=== PATIENT | male | born 1945 | race American Indian/Alaskan Native ===

== ENCOUNTER 2016-11-27 08:52 | Inpatient (IN) | payer MEDICARE, MEDICAID ==
[2016-11-27 09:05] VITALS: BMI 18.3
[2016-11-27] MEDS ORDERED: Sodium Chloride 0.9% 500 ML IV STA ×2 (10:12→11:43)
[2016-11-27 10:38] LABS: BASO # 0.02 K/mm3 (0.0-2.0); BASO % 0.7 % (0.0-3.0); EOS # 0.2 (0.0-0.7); EOS % 7.3 % (1.5-5.0); GRAN # 1.85 (1.4-6.5); GRAN % 64.2 % (50.0-68.0); HEMATOCRIT 40.6 % (42.0-52.0); LYMPH # 0.3 (1.2-3.4); LYMPH % 10.8 % (22.0-35.0); MEAN CELL VOLUME 82.4 fL (80.0-105.0); MEAN CORPUSCULAR HEMOGLOBIN 28.2 pg (25.0-35.0); MEAN CORPUSCULAR HGB CONC 34.2 g/dl (31.0-37.0); MEAN PLATELET VOLUME 9.9 fl (7.0-11.0); MONO # 0.5 (0.1-0.6); PLATELET COUNT 158 10^3/uL (120.0-450.0); RED CELL DISTRIBUTION WIDTH 14.8 % (11.5-14.5)
[2016-11-27 10:40] LABS: URINE BILIRUBIN NEGATIVE (NEGATIVE); URINE BLOOD MODERATE (NEGATIVE); URINE GLUCOSE (UA) NEGATIVE (NEGATIVE); URINE KETONE NEGATIVE (NEGATIVE); URINE LEUKOCYTE ESTERASE MODERATE Leu/uL (NEGATIVE); URINE PROTEIN 100 mg/dL (<30 mg/dL); URINE UROBILINOGEN 0.2 E.U./dL (<1 E.U./dL)
[2016-11-27 10:41] LABS: URINE APPEARANCE TURBID (CLEAR); URINE COLOR YELLOW (YELLOW)
[2016-11-27 10:44] LABS: WHITE BLOOD COUNT 2.9 10^3/ul (4.5-11.0)
[2016-11-27 10:47] LABS: URINE RBC 25 - 30 /hpf (0-2); URINE WBC TNTC /hpf (0-6)
[2016-11-27 10:48] LABS: ALB/GLOB RATIO 1.1 (1.1-1.8); ALKALINE PHOSPHATASE 112 U/L (38-133); ALT/SGPT 26 U/L (7-56); AST/SGOT 35 U/L (15-59); BILIRUBIN,TOTAL 0.8 mg/dL (0.2-1.3); BLOOD UREA NITROGEN 19 mg/dL (7-21); CALCIUM 10.1 mg/dL (8.4-10.5); CARBON DIOXIDE 27 mmol/L (21-33); CHLORIDE 98 mmol/L (98-107); GFR AFRICAN-AMERICAN > 60; GLUCOSE,RANDOM 89 mg/dL (70-110); INR 1.12 (0.93-1.08); LIPASE 99 U/L (23-300); PARTIAL THROMBOPLASTIN TIME 26.5 Seconds (23.7-30.8); SODIUM 139 mmol/L (132-148); TOTAL PROTEIN 8.7 g/dL (5.8-8.3); URINE BACTERIA MANY (NEG)
--- NOTE | 2016-11-27 10:50 | RAD ---
HISTORY: weakness COMPARISON: No prior. FINDINGS: LUNGS: No active pulmonary disease. PLEURA: No significant pleural effusion identified, no pneumothorax apparent. CARDIOVASCULAR: Normal. OSSEOUS STRUCTURES: No significant abnormalities. VISUALIZED UPPER ABDOMEN: Normal. OTHER FINDINGS: None. IMPRESSION: No active disease.
[2016-11-27 10:59] LABS: TROPONIN I 0.01 ng/mL
[2016-11-27 11:21] LABS: ADD MANUAL DIFF? NO
[2016-11-27] MEDS ORDERED: Piperacillin/Tazobact 3.375 gm 100 ML IVPB STA (11:48)
--- NOTE | 2016-11-27 11:49 | ED PDOC ---
Arrival/HPI - General Chief Complaint: Weakness/Neurological Deficit Time Seen by Provider: 11/27/16 09:46 Historian: Patient - History of Present Illness Narrative History of Present Illness (Text): 11/27/16 16:17 71-year-old male presents today sent down by his oncologist for possible dehydration and weakness. Patient states he's been feeling weak hasn't been eating for the past month or so. Patient states it has been since he has started the cancer treatment. Patient denies fevers or chills. No abdominal pain. No chest pain or shortness of breath. Patient states he hasn't had an appetite and hasn't been drinking a lot. Patient denies urinary symptoms. No back pain. No other complaints Past Medical History - Provider Review Nursing Documentation Reviewed: Yes - Travel History Have you recently traveled outside [place] w/in the past 3 mons?: No - Tetanus Immunization Tetanus Immunization: Unknown - Cardiac Hx Cardiac Disorders: Yes Hx Hypertension: Yes - Pulmonary Hx Respiratory Disorders: No - Neurological Hx Neurological Disorder: Yes HX Cerebrovascular Accident: Yes (LEFT SIDED WEAKNESS) Hx Seizures: Yes Other/Comment: "MEMORY DEFICIT". "PARTIALLY CONFUSED" - HEENT Hx HEENT Disorder: Yes Other/Comment: HX: CHRONIC TONSILLITIS - Endocrine/Metabolic Hx Endocrine Disorders: No - Hematological/Oncological Hx Cancer: Yes (testicular c/ radiation) - Musculoskeletal/Rheumatological Hx Musculoskeletal Disorders: Yes Hx Unsteady Gait: Yes ("ABNORMALITY OF GAIT") - Genitourinary/Gynecological Hx Genitourinary Disorders: Yes Hx Incontinence: Yes - Psychiatric Hx Psychophysiologic Disorder: Yes ("PARTIALLY CONFUSED") Hx Substance Use: No - Anesthesia Hx Anesthesia: Yes Hx Anesthesia Reactions: No Family/Social History - Physician Review Nursing Documentation Reviewed: Yes Family/Social History: Unknown Family HX Smoking Status: Unknown If Ever Smoked Hx Alcohol Use: No Hx Substance Use: No Allergies/Home Meds Allergies/Adverse Reactions: Allergies No Known Allergies Allergy (Verified 11/27/16 09:05) Home Medications: Home Meds Medication Instructions Recorded Confirmed Enalapril Maleate [Vasotec] 20 mg PO BID 05/21/16 11/27/16 Phenytoin Sodium Extended 100 mg PO TID 05/21/16 11/27/16 [Phenytoin Sodium Extended] Simvastatin 40 mg PO DAILY 05/21/16 11/27/16 Tamsulosin [Flomax] 0.4 mg PO DAILY 05/21/16 11/27/16 Review of Systems - Review of Systems Constitutional: absent: Fatigue, Fevers Respiratory: absent: SOB, Cough Cardiovascular: absent: Chest Pain, Palpitations Gastrointestinal: Appetite Changes. absent: Abdominal Pain, Diarrhea, Nausea, Vomiting Genitourinary Male: absent: Dysuria, Frequency Musculoskeletal: absent: Arthralgias, Back Pain, Neck Pain Skin: absent: Rash, Pruritis Neurological: Other (generalized weakness. ) Physical Exam Vital Signs Reviewed: Yes Vital Signs Temp Pulse Pulse Resp BP Pulse Ox 11/27/16 16:16 79 16 117/72 100 11/27/16 15:43 97.7 F 90 90 16 124/75 11/27/16 13:45 90 16 124/75 100 11/27/16 12:23 77 16 113/73 100 11/27/16 09:16 97.7 F 99 H 18 111/74 99 Temperature: Afebrile Blood Pressure: Normal Pulse: Tachycardic Respiratory Rate: Normal Appearance: Positive for: Well-Appearing, Non-Toxic, Ill-Appearing, Cachectic Pain Distress: None Mental Status: Positive for: Alert and Oriented X 3 - Systems Exam Head: Present: Atraumatic Mouth: Present: Dry Neck: Present: Normal Range of Motion Respiratory/Chest: Present: Clear to Auscultation Cardiovascular: Present: Regular Rate and Rhythm Abdomen: No: Tenderness, Distention, Rebound, Guarding Back: Present: Normal Inspection. No: CVA Tenderness Neurological: Present: GCS=15 Skin: Present: Warm, Dry, Normal Color. No: Rashes Psychiatric: Present: Alert, Oriented x 3 Medical Decision Making ED Course and Treatment: 71yr old male with generalized weakness and decreased appetite. will check labs/ekg/cxr; will hydrate patient. 11/27/16 11:[address] Mooney; accepts admission. NS 500cc iv bolus 11/27/16 12:16 cbc; wbc; 2.9 cmp: wnl UA: + blood, moderate leukocytes; + TNTC wbcs. + bacteria blood cultures:pending Urine culture pending cxr; wnl ekg; NSR at 73b/m no st elevations. lactate; 2.1 pt with UTI, with leukopenia white blood cell count 2.9, heart rate 99. code sepsis called. 30cc/kg NS iV given zosyn given IV. Pt reassessment; repeat vitals; stable; pt is afebrile, tachycardia resolved. i discussed all results in depth with patient; will admit to tele for urosepsis case discussed with dr. underwood. impression; urosepsis admit tele ; dr. mooney. 11/27/16 16:25 4hr lactate; improved; 1.2 - Lab Interpretations Lab Results: 11/27/16 10:00 11/27/16 10:00 Lab Results 11/27/16 12:20: Phosphorus 3.7, Magnesium 1.9 11/27/16 11:48: pO2 44, VBG pH 7.30 L, VBG pCO2 61.0 H, VBG HCO3 30.0 H, VBG Total CO2 31.9 H, VBG O2 Sat (Calc) 72.0 H, VBG Base Excess 2.0, VBG Potassium 5.5 H, Sodium 138.0, Chloride 102.0, Glucose 81, Lactate 2.1, FiO2 21.0, Venous Blood Potassium 5.5 H 11/27/16 10:00: WBC 2.9 L*, RBC 4.93, Hgb 13.9 L, Hct 40.6 L, MCV 82.4, MCH 28.2 , MCHC 34.2, RDW 14.8 H, Plt Count 158, MPV 9.9, Gran % 64.2, Lymph % (Auto) 10.8 L, [place] % (Auto) 17.0 H, Eos % (Auto) 7.3 H, Baso % (Auto) 0.7, Gran # 1.85 , Lymph # 0.3 L, [place] # 0.5, Eos # 0.2, Baso # 0.02, PT 12.1 H, INR 1.12 H, APTT 26.5, Sodium 139, Chloride 98, Potassium 4.0, Carbon Dioxide 27, Anion Gap 18, BUN 19, Creatinine 0.7, Est GFR ( Amer) > 60, Est GFR (Non-Af Amer) > 60, Random Glucose 89, Calcium 10.1, Total Bilirubin 0.8, AST 35, ALT 26, Alkaline Phosphatase 112, Lactate Dehydrogenase 462, Total Creatine Kinase 135, Troponin I 0.01, Total Protein 8.7 H, Albumin 4.6, Globulin 4.1, Albumin/ Globulin Ratio 1.1, Lipase 99, Urine Color Yellow, Urine Appearance Turbid, Urine pH 8.0, Ur Specific [place] 1.020, Urine Protein 100 H, Urine Glucose (UA ) Negative, Urine Ketones Negative, Urine Blood Moderate H, Urine Nitrate Negative, Urine Bilirubin Negative, Urine Urobilinogen 0.2, Ur Leukocyte Esterase Moderate H, Urine RBC 25 - 30, Urine WBC Tntc, Urine Bacteria Many - RAD Interpretation Radiology Orders: 11/27/16 10:11 CHEST PORTABLE [RAD] Stat - Medication Orders Current Medication Orders: Discontinued Medications Sodium Chloride (Sodium Chloride 0.9%) 500 mls @ 999 mls/hr IV .Q31M STA Stop: 11/27/16 10:42 Last Admin: 11/27/16 10:16 Dose: 999 MLS/HR eMAR Start Stop Document 11/27/16 10:16 GARRY (Rec: 11/27/16 10:17 [id number]) Intravenous Solution Start Date 11/27/16 Start Time 10:16 End Date 11/27/16 End time 10:46 Total Infusion Time 30 Sodium Chloride (Sodium Chloride 0.9%) 500 mls @ 999 mls/hr IV .Q31M STA Stop: 11/27/16 12:13 Last Admin: 11/27/16 12:00 Dose: 999 MLS/HR eMAR Start Stop Document 11/27/16 12:00 GARRY (Rec: 11/27/16 [id number] Intravenous Solution Start Date 11/27/16 Start Time 12:00 End Date 11/27/16 End time 12:30 Total Infusion Time 30 Piperacillin Sod/Tazobactam Sod (Zosyn 3.375 In Ns 100ml) 100 mls @ 200 mls/hr IVPB STAT STA PRN Reason: Protocol Stop: 11/27/16 12:17 Last Admin: 11/27/16 12:26 Dose: 200 MLS/HR eMAR Start Stop Document 11/27/16 12:26 GARRY (Rec: 11/27/16 12:27 [id number] Intravenous Solution Start Date 11/27/16 Start Time 12:26 End Date 11/27/16 End time 12:56 Total Infusion Time 30 Sodium Chloride (Sodium Chloride 0.9%) 590 mls @ 999 mls/hr IV .Q36M STA Stop: 11/27/16 13:04 Last Admin: 11/27/16 12:30 Dose: 999 MLS/HR eMAR Start Stop Document 11/27/16 12:30 GARRY (Rec: 11/27/16 12:34 GARRY [id number]) Intravenous Solution Start Date 11/27/16 Start Time 12:30 End Date 11/27/16 End time 13:05 Total Infusion Time 35 Disposition/Present on Arrival - Present on Arrival Any Indicators Present on Arrival: No History of DVT/PE: No History of Uncontrolled Diabetes: No Urinary Catheter: No History of Decub. Ulcer: No History Surgical Site Infection Following: None - Disposition Have Diagnosis and Disposition been Completed?: Yes Diagnosis: Urinary tract infection Disposition: HOSPITALIZED Disposition Time: 11:49 Patient Plan: Admission, Telemetry Patient Problems: Current Active Problems Problem Status Diagnosed Urinary tract infection Acute Condition: FAIR
[2016-11-27 12:38] LABS: MAGNESIUM 1.9 mg/dL (1.7-2.2); PHOSPHOROUS 3.7 mg/dL (2.5-4.5)
[2016-11-27 16:22] LABS: VENOUS BLOOD GAS BASE EXCESS 0.3 mmol/L (0.0-2.0); VENOUS BLOOD PH 7.32 (7.32-7.43)
--- NOTE | 2016-11-27 18:26 | CARD ---
APPROVED REPORT EKG Measurement Heart [id number] <Conclusion> Poor data quality, interpretation may be adversely affected Normal sinus rhythm Normal ECG
[2016-11-27] MEDS: Sodium Chloride 0.45% 1,000 ML IV SCH (20:29)
[2016-11-27] MEDS: Meropenem 1 GM in Sodium Chloride 0.9% 100 ML IVPB SCH (20:31)
[2016-11-28] MEDS: Meropenem 1 GM in Sodium Chloride 0.9% 100 ML IVPB SCH ×3 (05:49→21:50)
[2016-11-28 07:12] LABS: HEMATOCRIT 33.9 % (42.0-52.0); MEAN CELL VOLUME 82.3 fL (80.0-105.0); MEAN CORPUSCULAR HEMOGLOBIN 27.4 pg (25.0-35.0); MEAN CORPUSCULAR HGB CONC 33.3 g/dl (31.0-37.0); MEAN PLATELET VOLUME 9.5 fl (7.0-11.0); RED CELL DISTRIBUTION WIDTH 14.8 % (11.5-14.5)
[2016-11-28 07:36] LABS: WHITE BLOOD COUNT 2.1 10^3/ul (4.5-11.0)
--- NOTE | 2016-11-28 07:44 | HP ---
HISTORY OF PRESENT ILLNESS: I was called to the Emergency Room today to see the patient as he was no t feeling well. He was having a bad urinary tract infection. Also, a little bit of dehydration and weakness. He had been eating well for about a month after he started cancer treatment. No fever, ch ills, no abdominal pain, but just no appetite, has been losing weight, has not been able to drink any thing. PAST MEDICAL HISTORY: Hypertension. He has left-sided weakness from a CVA, old. He has memory defi cit, partially confused, chronic tonsillitis, testicular cancer with radiation, he has abnormal gait from the weakness. He has no known history in the family that he knows of. SOCIAL HISTORY: No apparent smoking. No alcohol or substance abuse. ALLERGIES: No known drug allergies. MEDICATIONS: Vasotec, phenytoin for seizures, simvastatin for high cholesterol, Flomax for BPH. REVIEW OF SYSTEMS: No fevers. He does have a little bit of fatigue. No acute vision or hearing jennifer nges, but they are old. A little bit inappropriate with some of his answers. No chest pain, no palp itations, no shortness of breath, no cough. He has poor appetite, big time appetite changes. No pro blems urinating. No back pain or leg pain. No rashes. Just overall generalized weakness and fatigu ed. PHYSICAL EXAMINATION: VITAL SIGNS: She has a 97.7 temp, 90 pulse,16 respiratory rate,124/75 blood pressure,100% O2 sat on oxygen. GENERAL: Head atraumatic, normocephalic. He is fairly well appearing, ill, overall weak and thin. THROAT: Moist. NECK: Supple. Thyroid midline. No palpable lymphadenopathy. HEART: Regular rate. LUNGS: Have decreased breath sounds. No wheezes or rhonchi or rales. ABDOMEN: Soft, nontender, positive bowel sounds, no guarding, no CVA tenderness, no rebound. SKIN: Warm and dry. NEUROLOGIC: GCS is 15. He is alert. He has generalized weakness, decreased appetite, weight loss, decreased urination, a little bit confu sed. Since his radiation for the testicular cancer he has been doing poorly. He has got left-sided weakness from an old stroke. LABORATORY: He has a urine that is moderate blood, moderate leukocytes, many bacteria. White count is 2.9, hemoglobin 13.9, hematocrit 40.6, platelets are 158. INR is 1.12. He had a 65 pO2, a 7.32 p H. He has a 139 sodium, potassium 4, BUN 19, creatinine 0.7, GFR is greater than 60, sugar is 89, ca lcium 10.1, phosphorus 3.7, magnesium 1.9, total bili is 0.8, AST 35, ALT is 26, alkaline phosphatase 112, troponin 0.01, total protein is 8.7, albumin is 4.6, lipase 99. His urine is bad. 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 He is in distress. He will get IV fluids and IV antibiotics. I nfectious disease consult. Will keep a close eye on him. Chest x-ray was clear and will check his l abs tomorrow. He on IV fluids, IV antibiotics, he is IV Merrem. Arie Chandler DO cc: [id number] TT: 11/27/2016 20:06:48 bella
[2016-11-28 07:47] LABS: ALKALINE PHOSPHATASE 67 U/L (38-133); ALT/SGPT 36 U/L (7-56); AST/SGOT 35 U/L (15-59); BILIRUBIN,TOTAL 0.6 mg/dL (0.2-1.3); BLOOD UREA NITROGEN 15 mg/dL (7-21); CALCIUM 8.5 mg/dL (8.4-10.5); CARBON DIOXIDE 24 mmol/L (21-33); CHLORIDE 104 mmol/L (98-107); GFR AFRICAN-AMERICAN > 60; GLUCOSE,RANDOM 65 mg/dL (70-110); POTASSIUM 3.8 mmol/L (3.6-5.0); SODIUM 136 mmol/L (132-148); TOTAL PROTEIN 6.2 g/dL (5.8-8.3)
--- NOTE | 2016-11-28 09:01 | PN ---
DATE: 11/28/2016 I saw him resting in bed this morning. He slept fairly well last night. He tells me he is feeling a little bit better. He is on IV fluids and IV antibiotics. He is eating a little bit; still weak th ough. VITAL SIGNS: A 98.2 temp, 83 pulse, 110/70 blood pressure, 18 respiratory rate, and 100% O2 sat on r oom air. HEAD: Atraumatic, normocephalic. Throat is moist. NECK: Supple. HEART: Regular rate. LUNGS: Clear to auscultation. ABDOMEN: Soft, nontender, positive bowel sounds. No guarding, no rebound. No CVA tenderness. EXTREMITIES: Are weak, but I do not know if he can walk. He is currently on Merrem IV by infectious disease, and IV fluids. Labs yesterday was a 2.9 white count, 13.9, hemoglobin. He has a 139 sodium, potassium is 4, BUN 19, creatinine 0.7. GFR is greater than 60. AST is 35, ALT is 26. Troponin of 0.01. Waiting for this morning's labs. Continue with IV antibiotics. I want him out of bed to chair. I want physical therapy involved to see if he needs any rehab or he can go home. Will continue with the ant ibiotics as per infectious disease. I do think he is improving, and he is here for urinary tract inf ection, sepsis. He has a history of old cerebrovascular accident, old prostate cancer. Arie Chandler DO cc: [id number] TT: 11/28/2016 09:00:53 Confirmation # [id number] Dictation # [id number] [email or web address]
--- NOTE | 2016-11-28 14:22 | CP.PCM.PN ---
Subjective - Date & Time of Evaluation Date of Evaluation: 11/28/16 Time of Evaluation: 02:00 - Subjective Subjective: Mr Lyons is known to our department. He is an alcoholic and smoker who has an early stage oropharyngeal cancer. He is currently on radiation therapy for his head/neck cancer. He is admitted for treatment of his UTI and dehydration. He does have oropharyngeal discomfort due to his radiation. He has lost weight due to his treatment, but refuses a PEG tube and is not very compliant about trying to increase his oral caloric intake. He has a couple of weeks left of treatment. We are continuing to monitor and treat him while in the hospital. Objective - Vital Signs/Intake and Output Vital Signs (last 24 hours): Temp Pulse Resp BP Pulse Ox 98.1 F 68 19 104/61 100 11/28/16 12:00 11/28/16 12:00 11/28/16 12:00 11/28/16 12:00 11/28/16 06:00 Intake and Output: 11/28/16 11/28/16 06:59 18:59 Intake Total 0 Output Total 150 Balance -150 - Medications Medications: Current Medications Meropenem 1 gm/ Sodium (Chloride) 100 mls @ 100 mls/hr IVPB Q8 ALEXIS PRN Reason: Protocol Stop: 12/04/16 18:12 Last Admin: 11/28/16 05:49 Dose: 100 mls/hr Sodium Chloride (Sodium Chloride 0.45%) 1,000 mls @ 40 mls/hr IV .Q24H ALEXIS Last Admin: 11/27/16 20:29 Dose: 40 mls/hr - Labs Labs: 11/28/16 06:30 11/28/16 06:30 PT 12.1 Seconds (9.9-11.8) H 11/27/16 10:00 INR 1.12 (0.93-1.08) H 11/27/16 10:00 APTT 26.5 Seconds (23.7-30.8) 11/27/16 10:00
--- NOTE | 2016-11-28 15:25 | CP.PCM.CON ---
History of Present Illness - History of Present Illness History of Present Illness: 71 year old male with PMH of HTN, CVA with residual left sided weakness, chronic tonsillitis, testicular CA S/P radiation treatment was sent in by his oncologist because of poor appetite for the past month and generalized weakness for the past 2-3 days. There has been no fever or chills, no nausea or vomiting , no diarrhea, no abdominal pain, no flank pain, no headache or dizziness, no chest pain, no SOB, no sore throat, no rhinorrhea. In the ED, he was noted to have leukopenia as well as pyuria on urinalysis. Infectious Diseases consult is requested to further evaluate and manage.No other complaints Review of Systems - Review of Systems All systems: reviewed and no additional remarkable complaints except (as per HPI ) Past Patient History - Tetanus Immunizations Tetanus Immunization: Unknown - Past Medical History & Family History Past Medical History?: Yes Past Family History: Reviewed and not pertinent - Past Social History Smoking Status: Unknown If Ever Smoked Alcohol: None Drugs: Denies Home Situation {Lives}: With Family - CARDIAC Hx Cardiac Disorders: Yes Hx Hypertension: Yes - PULMONARY Hx Respiratory Disorders: No - NEUROLOGICAL Hx Neurological Disorder: Yes HX Cerebrovascular Accident: Yes (LEFT SIDED WEAKNESS) Hx Seizures: Yes Other/Comment: "MEMORY DEFICIT". "PARTIALLY CONFUSED" - HEENT Hx HEENT Problems: Yes Other/Comment: HX: CHRONIC TONSILLITIS - ENDOCRINE/METABOLIC Hx Endocrine Disorders: No - HEMATOLOGICAL/ONCOLOGICAL Hx Cancer: Yes (testicular c/ radiation) - MUSCULOSKELETAL/RHEUMATOLOGICAL Hx Musculoskeletal Disorders: Yes Hx Unsteady Gait: Yes ("ABNORMALITY OF GAIT") - GENITOURINARY/GYNECOLOGICAL Hx Genitourinary Disorders: Yes Hx Incontinence: Yes - PSYCHIATRIC Hx Psychophysiologic Disorder: Yes ("PARTIALLY CONFUSED") Hx Substance Use: No - SURGICAL HISTORY Hx Surgeries: Yes - ANESTHESIA Hx Anesthesia: Yes Hx Anesthesia Reactions: No Meds Allergies/Adverse Reactions: Allergies Allergy/AdvReac Type Severity Reaction Status Date / Time No Known Allergies Allergy Verified 11/27/16 09:05 - Medications Medications: Current Medications Meropenem 1 gm/ Sodium (Chloride) 100 mls @ 100 mls/hr IVPB Q8 ALEXIS PRN Reason: Protocol Stop: 12/04/16 18:12 Physical Exam - Constitutional Appears: Non-toxic, No Acute Distress - Head Exam Head Exam: NORMAL INSPECTION - ENT Exam ENT Exam: Mucous Membranes Moist - Neck Exam Neck exam: Negative for: Lymphadenopathy, Meningismus - Respiratory Exam Respiratory Exam: Decreased Breath Sounds - Cardiovascular Exam Cardiovascular Exam: +S1, +S2 - GI/Abdominal Exam GI & Abdominal Exam: Soft. absent: Tenderness Results - Vital Signs Recent Vital Signs: Last Vital Signs Temp 98.8 F 11/27/16 17:53 Pulse 87 11/27/16 17:53 Resp 20 11/27/16 17:53 BP 137/77 11/27/16 17:53 Pulse Ox 100 11/27/16 16:16 - Labs Result Diagrams: 11/28/16 06:30 11/28/16 06:30 Labs: Laboratory Results - last 24 hr 11/27/16 16:00 pO2 65 H VBG pH 7.32 VBG pCO2 53.0 VBG HCO3 27.3 VBG Total CO2 28.9 H VBG O2 Sat (Calc) 94.7 H VBG Base Excess 0.3 VBG Potassium 3.7 Sodium 139.0 Chloride 105.0 Glucose 78 Lactate 1.2 FiO2 21.0 Venous Blood Potassium 3.7 Assessment & Plan - Assessment and Plan (Free Text) Plan: Assessment Systemic Inflammatory Response Syndrome (tachycardia and leukopenia), consider sepsis secondary to urinary tract infection HTN CVA with residual left sided weakness chronic tonsillitis testicular CA S/P radiation treatment Plan Started patient on Meropenem pending urine cx; blood cx are negative x 24 hours ; will check renal ultrasound to rule out hydronephrosis or stone Will monitor clinically
[2016-11-28 18:48] VITALS: RESP 18
[2016-11-28] MEDS: Sodium Chloride 0.45% 1,000 ML IV SCH (21:54)
[2016-11-29] MEDS: Meropenem 1 GM in Sodium Chloride 0.9% 100 ML IVPB SCH ×2 (05:02→14:19)
[2016-11-29 05:59] VITALS: TEMP 98.4; O2SAT 97
[2016-11-29 07:20] LABS: ALKALINE PHOSPHATASE 70 U/L (38-133); ALT/SGPT 41 U/L (7-56); AST/SGOT 33 U/L (15-59); BILIRUBIN,TOTAL 0.5 mg/dL (0.2-1.3); BLOOD UREA NITROGEN 9 mg/dL (7-21); CALCIUM 8.6 mg/dL (8.4-10.5); CARBON DIOXIDE 27 mmol/L (21-33); CHLORIDE 103 mmol/L (98-107); GFR AFRICAN-AMERICAN > 60; GLUCOSE,RANDOM 82 mg/dL (70-110); POTASSIUM 3.5 mmol/L (3.6-5.0); SODIUM 140 mmol/L (132-148)
[2016-11-29 07:38] LABS: HEMATOCRIT 33.5 % (42.0-52.0); MEAN CELL VOLUME 81.1 fL (80.0-105.0); MEAN CORPUSCULAR HEMOGLOBIN 27.4 pg (25.0-35.0); MEAN CORPUSCULAR HGB CONC 33.7 g/dl (31.0-37.0); MEAN PLATELET VOLUME 9.8 fl (7.0-11.0); PLATELET COUNT 153 10^3/uL (120.0-450.0); RED CELL DISTRIBUTION WIDTH 14.5 % (11.5-14.5)
[2016-11-29 07:44] LABS: ADD MANUAL DIFF? NO; BASO % 0.5 % (0.0-3.0); EOS % 8.7 % (1.5-5.0); GRAN # 1.38 (1.4-6.5); GRAN % 66.7 % (50.0-68.0); LYMPH % 8.2 % (22.0-35.0); MONO % 15.9 % (1.0-6.0)
[2016-11-29 07:45] LABS: BASO # 0.01 K/mm3 (0.0-2.0); EOS # 0.2 (0.0-0.7); LYMPH # 0.2 (1.2-3.4); MONO # 0.3 (0.1-0.6)
[2016-11-29] MEDS ORDERED: Potassium Chloride 10 mEq 100 ML IVPB ONE (08:14)
--- NOTE | 2016-11-29 08:59 | PN ---
DATE: 11/29/2016 I saw him resting in bed this morning. He is not sleeping that great. He is not eating that well. He is on IV fluids and IV Merrem. Oncology came in for his head and neck cancer and radiation treatm ent evaluation. There is also an ultrasound pending of his kidneys to make sure there is no hydronep hrosis. PHYSICAL EXAMINATION: VITAL SIGNS: Right now are 98.4 temp, 97 pulse, 122/76 blood pressure, 18 respiratory rate, 97% O2 s at on room air. HEAD: Atraumatic, normocephalic. HEART: Regular rate. LUNGS: Clear to auscultation. ABDOMEN: Soft. EXTREMITIES: No edema. LABORATORIES: He has a 140 sodium, potassium 3.5 (I am going to replace potassium with a K rider). I am waiting for physical therapy to let me know their recommendations. Also, depending what the ult rojas says, let me know what do about his kidneys. Also waiting for ID to let me know when I can c hange him to tablets. He is just not eating well because of the radiation to his head and neck cance r. He has head and neck cancer, old cerebrovascular accident, urinary tract infection, alcoholic, smoker , was a little bit dehydrated. Will continue with fluids, antibiotics and await physical therapy's recommendation. Arie Chandler DO cc: [id number] TT: 11/29/2016 08:59:18 Confirmation # [id number] Dictation # [id number] mn
[2016-11-29] MEDS ORDERED: Potassium Chloride 40 mEq/30 ml LIQ UD PO ONE (09:25)
--- NOTE | 2016-11-29 11:27 | US ---
PROCEDURE: Ultrasound of the Kidneys HISTORY: rule out hydronephrosis COMPARISON: None available. TECHNIQUE: Sonogram of the kidneys. FINDINGS: RIGHT KIDNEY: Measures: 9.3 cm. Normal in size, contour and echogenicity. No stone, solid mass lesion or hydronephrosis visualized. LEFT KIDNEY: Measures: 10.2 cm. Normal in size, contour and echogenicity. No stone, solid mass lesion or hydronephrosis visualized. OTHER FINDINGS: None. IMPRESSION: Unremarkable renal sonogram.
[2016-11-29 12:34] VITALS: BP 127/85; PULSE 77
--- NOTE | 2016-11-29 19:10 | CP.PCM.PN ---
Subjective - Date & Time of Evaluation Date of Evaluation: 11/29/16 Time of Evaluation: 09:00 - Subjective Subjective: Comfortable in bed, not in distress. No fevers overnight, no vomiting, no diarrhea. Objective - Vital Signs/Intake and Output Vital Signs (last 24 hours): Temp Pulse Resp BP Pulse Ox 98.4 F 77 18 127/85 97 11/29/16 12:00 11/29/16 12:00 11/29/16 12:00 11/29/16 12:00 11/29/16 05:58 Intake and Output: 11/29/16 11/30/16 18:59 06:59 Intake Total 300 Output Total 400 Balance -100 - Labs Labs: 11/29/16 05:30 11/29/16 05:30 PT 12.1 Seconds (9.9-11.8) H 11/27/16 10:00 INR 1.12 (0.93-1.08) H 11/27/16 10:00 APTT 26.5 Seconds (23.7-30.8) 11/27/16 10:00 - Constitutional Appears: Non-toxic, No Acute Distress - Head Exam Head Exam: NORMAL INSPECTION - Respiratory Exam Respiratory Exam: Decreased Breath Sounds - Cardiovascular Exam Cardiovascular Exam: +S1, +S2 - GI/Abdominal Exam GI & Abdominal Exam: Soft. absent: Tenderness Assessment and Plan - Assessment and Plan (Free Text) Plan: Assessment Systemic Inflammatory Response Syndrome (tachycardia and leukopenia), with no evidence of infection noted HTN CVA with residual left sided weakness chronic tonsillitis testicular CA S/P radiation treatment Plan urine cx are negative; blood cx are negative x 2 days; renal ultrasound is normal; PCT is <0.05 - we can discontinue antibiotics and observe
[2016-11-30] MEDS ORDERED: Potassium Chloride 20 mEq ER Tab PO SCH (08:00)
== END 2016-11-29 15:13 | disposition home or self-care (01) | DRG 690 ==
LOC: ED 08:52 → ERH 13:26 → 2RNO 16:27
PROVIDERS: ADMIT Family Medicine; ATTEND Family Medicine
PROC: DW011ZZ Beam Radiation of Head and Neck using Photons 1 - 10 MeV (ICD-10-PCS; principal; 2016-11-28)
DX: N39.0 Urinary tract infection, site not specified (principal); C10.9 Malignant neoplasm of oropharynx, unspecified; E86.0 Dehydration; I69.354 Hemiplegia and hemiparesis following cerebral infarction affecting left non-dominant side; I10 Essential (primary) hypertension; F10.20 Alcohol dependence, uncomplicated; J35.01 Chronic tonsillitis; R26.81 Unsteadiness on feet; Z92.3 Personal history of irradiation; Z85.46 Personal history of malignant neoplasm of prostate; Z85.47 Personal history of malignant neoplasm of testis